=== PATIENT | female | born 1985 | race Caucasian/White ===

== ENCOUNTER 2019-11-19 12:25 | Observation (INO) | payer MEDICAID ==
[~2019-11-19] VITALS: Ht 167.6 cm; Wt 104.3 kg
[2019-11-19] MEDS ORDERED: TERBUTALINE SULFATE 1 MG/ML VIAL SUBCUT ONE ×2 (12:26→16:15)
[2019-11-19 13:44] LABS: BILIRUBIN,URINE NEGATIVE (NEGATIVE); BLOOD, URINE NEGATIVE (NEGATIVE); COLOR,URINE YELLOW (YELLOW); GLUCOSE,URINE NEGATIVE (NEGATIVE); KETONES,URINE TRACE (NEGATIVE); LEUKOCYTE ESTERASE ,URINE 3+ (NEGATIVE); NITRITE, URINE NEGATIVE (NEGATIVE); PH,URINE 7.5 (5.0-8.0); PROTEIN URINE NEGATIVE (NEGATIVE); UROBILINOGEN,URINE 0.2 (0.2-1.0)
[2019-11-19 13:45] LABS: CLARITY/URINE SLIGHTLY HAZY (CLEAR)
[2019-11-19 13:48] LABS: BARBITURATE, URINE NEGATIVE (NEG <=200); BENZODIAZEPINE, URINE NEGATIVE (NEG <=150); CANNABINOID, URINE NEGATIVE (NEG <=50); COCAINE, URINE NEGATIVE (NEG <=150); METHAMPHETAMINES SCREEN,URINE NEGATIVE (NEG <=500); OPIATE, URINE NEGATIVE (NEG <=100); PHENCYCLIDINE SCREEN,URINE NEGATIVE (NEG <=25); UR TRICYCLIC ANTIDEPRESSANTS NEGATIVE (NEG <=300); URINE AMPHETAMINE NEGATIVE (NEG <=500); URINE METHADONE NEGATIVE (NEG <=200); URINE OXYCODONE SCREEN NEGATIVE (NEG <=100); URINE PROPOXYPHENE SCREEN NEGATIVE (NEG <=300)
[2019-11-19 14:02] LABS: BACTERIA,URINE FEW /HPF (None Seen); RBC,URINE 0-3 /HPF (0-3); URINE AMORPHOUS PHOSPHATES 1+ /HPF (None Seen)
[2019-11-19] MEDS ORDERED: D5/0.45 NS 1,000 ML IV SCH (15:45)
[2019-11-19] MEDS: ceFAZolin SODIUM 2 GM in D5W 50 ML IV SCH ×2 (16:12→22:00)
[2019-11-20] MEDS: ceFAZolin SODIUM 2 GM in D5W 50 ML IV SCH ×2 (04:00→09:30)
[2019-11-20] MEDS ORDERED: CEFAZOLIN 2 GM IVPB PREMIX 50 ML IV ONE (04:01)
[2019-11-20] MEDS ORDERED: ceFAZolin SODIUM 1 GM VIAL ONE (09:46)
== END 2019-11-20 10:00 | disposition home or self-care (01) ==
LOC: SPU 12:25
PROVIDERS: ADMIT Specialist; ATTEND Specialist
DX: O23.43 Unspecified infection of urinary tract in pregnancy, third trimester (principal); O62.9 Abnormality of forces of labor, unspecified; Z3A.31 31 weeks gestation of pregnancy; Z79.899 Other long term (current) drug therapy
CPT/HCPCS: 76805; 80307; 81000; 87086; 96361; 96365; 96366 ×2; 96372; G0378; J0690 ×3; J3105; J7060